=== PATIENT | female | born 1975 | race Caucasian/White ===

== ENCOUNTER 2019-09-02 05:16 | Day surgery (SDC) | payer OTHER ==
[2019-09-01 13:36] VITALS: BMI 34.7
[2019-09-02] MEDS ORDERED: LIDOCAINE HCL 1%, 10 MG/ML (20ML VIAL) ONE (08:20)
[2019-09-02] MEDS ORDERED: fentaNYL CITRATE 250 MCG/5 ML VIAL ONE (08:26)
[2019-09-02] MEDS ORDERED: MIDAZOLAM HCL 2 MG/2 ML SINGLE DOSE VIAL ONE ×2 (08:27)
[2019-09-02] MEDS ORDERED: PROPOFOL 20 ML ONE ×2 (08:27→08:56)
[2019-09-02] MEDS ORDERED: SUCCINYLCHOLINE CHLORIDE 200 MG/10 ML SYRINGE ONE (08:31)
[2019-09-02] MEDS ORDERED: ceFAZolin SODIUM 1 GM VIAL IVPB ONE (09:40)
[2019-09-02] MEDS ORDERED: DEXAMETHASONE SOD PHOSPHATE 4 MG/1 ML VIAL ONE (09:44)
[2019-09-02] MEDS ORDERED: BACITRACIN/POLYMYXIN B SULFATE 15 GM TUBE TP ONE (10:05)
[2019-09-02] MEDS ORDERED: LIDOCAINE HCL 1%, 10 MG/ML (20ML VIAL) INF ONE (10:05)
[2019-09-02] MEDS ORDERED: PROMETHAZINE HCL 25 MG/1 ML VIAL IVPUSH PRN (10:25)
[2019-09-02] MEDS ORDERED: ACETAMINOPHEN 325 MG TABLET (FP) PO PRN (10:25)
[2019-09-02] MEDS ORDERED: ONDANSETRON 4 MG/2 ML VIAL IVPUSH PRN (10:25)
[2019-09-02] MEDS ORDERED: oxyCODONE HCL 5 MG TABLET PO PRN ×2 (10:25)
[2019-09-02] MEDS ORDERED: LACTATED RINGERS SOLUTION 1,000 ML IV SCH (10:30)
[2019-09-02] MEDS ORDERED: oxyCODONE HCL 5 MG TABLET ONE (12:17)
[2019-09-02 12:40] VITALS: TEMP 97
[2019-09-02] MEDS ORDERED: ONDANSETRON 4 MG/2 ML VIAL ONE (12:50)
[2019-09-02 13:44] VITALS: BP 129/65; PULSE 69
--- NOTE | 2019-09-03 14:55 | OP ---
DATE OF OPERATION: 09/02/2019 PREOPERATIVE DIAGNOSIS: Right breast fistula, right breast mass. POSTOPERATIVE DIAGNOSIS: Right breast fistula, right breast mass. PROCEDURE: Excision of right breast mass and fistula. SURGEON: Tammie Briones MD ANESTHESIA: Local with IV sedation. ESTIMATED BLOOD LOSS: Minimal. COMPLICATIONS: None. DISPOSITION: Stable to PACU. INDICATIONS: The patient presented with a persistent acute and chronic infection of the inner right breast with an opening within the right 3 o'clock areolar treated several times with antibiotics over the past couple years. Now my recommendation is excision of the fistula. The procedure was discussed with all the questions answered. PROCEDURE IN DETAIL: The patient was brought to [facility] in [place], taken into the operating room. After IV sedation and IV antibiotics, the right breast was prepped and draped in the usual sterile fashion. The area on the inner and retroareolar of the right breast was anesthetized with 1% lidocaine without epinephrine. An ellipse of skin was taken to include the entry site of the fistula and I used a lacrimal duct probe to probe the fistula to the end as well as the connection to the duct. This was then excised en bloc and sent as a right breast excision of mass. This was taken then medially all the way to the nipple. Hemostasis assured with electrocautery. The parenchyma was reapproximated with interrupted 2-0 Vicryl, skin reapproximated with interrupted 3-0 Vicryl and interrupted 4-0 nylon stitches. Bacitracin and Tegaderm was applied. She tolerated the procedure well and was taken to Recovery in good condition. Evangelista [id number] MTDD
--- NOTE | 2019-09-05 16:28 | PATH ---
Surgical Pathology Report Patient Name: ELIO JOHNSON Med. Rec. #: [id number] /Age/Gender: 1975 (Age: 43) / F Account: [id number] Location: [facility] SURGICAL Taken: 09/02/2019 Received: 09/02/2019 Reported: 09/05/2019 Physicians: Tammie Briones M.D. Specimen(s) Received EXCISION RIGHT BREAST MASS Clinical History Excision of right breast fistula Final Diagnosis BREAST MASS, RIGHT, EXCISION: BENIGN BREAST PARENCHYMA AND OVERLYING SKIN WITH MARKED ACUTE AND CHRONIC INFLAMMATION, GRANULATION TISSUE FORMATION, HEMOSIDERIN -LADEN MACROPHAGE DEPOSITION, FOCAL GIANT CELL REACTION, AND REACTIVE CHANGES. Comment: Overall findings are consistent with clinical impression of fistula. Electronically Signed Renée Hillman M.D. Gross Description Received in formalin labeled "excision of right breast mass," is a 5.0 x 4.0 x 2.4 cm irregular, unoriented portion of fibroadipose tissue. The specimen is partially surfaced by a 3.0 x 0.8 cm antoine, elliptical, unremarkable portion of skin. There is no needle localization wire present. The specimen is inked blue and serially sectioned. Sectioning reveals minimal fibrous tissue. Inventory Control Assistant sections including the majority of the fibrous tissue are sequentially submitted in 7 cassettes. Time to formalin fixation: 6 minutes Total formalin fixation time: Approximately 8 hours. /09/02/2019 [facility]/09/02/2019
== END 2019-09-02 13:45 | disposition home or self-care (01) ==
LOC: JASU-SURG 05:16
PROVIDERS: ATTEND Surgery
PROC: 0HBT0ZX Excision of Right Breast, Open Approach, Diagnostic (ICD-10-PCS; principal; 2019-09-02 09:00)
DX: D24.1 Benign neoplasm of right breast (principal); N61.0 Mastitis without abscess
CPT/HCPCS: 88307-TC; 94760